=== PATIENT | male | born 1990 | race Caucasian/White ===

== ENCOUNTER 2023-12-21 12:59 | Outpatient (AMB) | payer OTHER, SELFPAY ==
[2023-12-21 13:12] VITALS: BP 124/84; PULSE 84; O2SAT 97; BMI 21.7
--- NOTE | 2023-12-21 13:12 | A.OFFPC_ITS ---
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 Pt hasn't seen a primary care since 20 years old. 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 Has not seen any medical doctor since he was 20 years old. Has been having frequent anxiety attacks and depressed mood on and off. Has not been seen and evaluated by psychiatry or seen a therapist. Heavy alcohol intake, drinks at least 2 six-packs on a daily basis, not ready to quit. Has history of cocaine use and marijuana in the past. Currently employed and has a has a to job with increased risk for asbestos exposure. He had a recent chest xray and pulmonary function test, required by his job. [facility] Medical History (Updated 12/21/23 @ 13:42 by Cesia Zavala MD) Depression with anxiety History of exposure to asbestos, presenting hazards to health Alcoholism Former cigarette smoker Alcohol use disorder Family History (Updated 12/21/23 @ 13:23 by Cesia Zavala MD) Mother Substance abuse Mental health disorder Father Substance abuse Mental health disorder Maternal Grandfather Prostate cancer Social History (Updated 12/24/23 @ 14:03 by Cesia Zavala MD) Housing: House Alcohol intake: current Alcohol intake frequency: 3 or more drinks per day Alcohol type: beer Comment: 2 6 pack a day Patient Tobacco Use Status: Former Tobacco user Tobacco use type: Cigarette e-Cigarette/Vaping Use: Never Used Substance Use Type: Crack/Cocaine and Marijuana service: No Current occupational status: employed Current occupational exposures/hazards: Yes Cognitive needs: No Hearing needs: No Vision needs: No Questionnaire PHQ-9 Over the last 2 weeks, how often have you been bothered by any of the following problems? 1. Little interest or pleasure in doing things: more than half the days 2. Feeling down, depressed, or hopeless: more than half the days 3. Trouble falling or staying asleep, or sleeping too much: nearly every day 4. Feeling tired or having little energy: more than half the days 5. Poor appetite or overeating: several days 6. Feeling bad about yourself - or that you are a failure or have let yourself or your family down: more than half the days 7. Trouble concentrating on things, such as reading the newspaper or watching television: more than half the days 8. Moving or speaking so slowly that other people could have noticed. Or the opposite - being so fidgety or restless that you have been moving around a lot more than usual: not at all 9. Thoughts that you would be better off or of hurting yourself in some way: not at all Total score: 14 Depression Screening Interpretation: Positive (Declines to start treatment, will refer for counseling) Depression Screening Follow-up: Community Mental Health Worker F/U Depression Screening Done: Yes 60672 - PHQ-9 Billing: Yes Source: Developed by Drs. Jim Baxter, Day Mcmullen, Julio C Savage and colleagues, with an educational aby from [employer]. Thrive Questionnaire Date Thrive assessed: 12/21/23 I am a: Patient What is your living situation today?: I have a steady place to live Within the past 12 months, did the food you bought not last and you didn't have the money to get more?: I choose not to answer this question Within the past 12 months, did you worry whether your food would run out before you got money to buy more?: I choose not to answer this question Do you have trouble paying for medicines?: No Do you have trouble getting transportation to medical appointments?: No Do you have trouble paying your heating and electricity bill?: No Do you have trouble taking care of your child, family member or friend?: No Do you have trouble with day-to-day activities such as bathing, preparing meals, shopping, managing finances, etc.?: No Are you currently unemployed and looking for a job?: No Are you interested in more education?: No Please select the resources that you would like help with: None Currently or been in a relationship where the following occur: I choose not to answer THRIVE Score: 0 AUDIT C Alcohol Use Questionnaire (AUDIT-C) 1. How often do you have a drink containing alcohol?: 4 or more times a week 2. How many drinks containing alcohol do you have on a typical day when you are drinking?: 10 or more 3. How often do you have six or more drinks on one occasion?: Daily or almost daily Total Score: 12 Score Reviewed/Action Taken: Yes KALPESH-7 AMB Questionnaire KALPESH-7 Date KALPESH - 7 assessed: 12/21/23 Feeling nervous, anxious, or on edge: 1 = Several days Not being able to stop or control worryin = Several days Worrying too much about different things: 1 = Several days Trouble relaxin = Several days Being so restless that it is hard to sit still: 1 = Several days Becoming easily annoyed or irritable: 1 = Several days Feeling afraid as if something awful might happen: 1 = Several days Total KALPESH-7 score (0-4 normal; 5-9 mild; 10-14 moderate; 15-21 severe): 7 Source: Developed by Drs. Jim Baxter, Day Mcmullen, Julio C Savage and colleagues, with an educational aby from [employer]. KALPESH-7 Assessment Billing KALPESH-7 Assessment Tool: KALPESH-7 Assessment 86598 Review of Systems Const Denies body aches, Denies fatigue, Denies fever(s), Denies headache(s) and Denies weakness Eyes Denies change in vision ENT Denies dizziness, Denies headache(s), Denies nasal discharge and Denies sore throat Card Denies chest pain, Denies lightheadedness, Denies palpitations and Denies dyspnea Resp Denies chest congestion, Denies cough, Denies dyspnea and Denies wheezing GI Denies abdominal pain, Denies change in bowel habits and Denies heartburn Denies hematuria, Denies difficulty urinating, Denies dysuria, Denies urinary frequency and Denies urinary urgency Musc Reports no additional complaints Skin/Breast Denies lesions and Denies rash Neuro Denies dizziness, Denies headache(s) and Denies weakness Psych Reports as per HPI Endo Denies fatigue, Denies polydipsia, Denies polyuria and Denies palpitations Killian/Lymph Denies easy bruising Aller/Immun Denies seasonal rhinorrhea and Denies wheezing Physical exam (Primary Care) Vital Signs: Last Vital Signs Pulse 84 12/21/23 13:12 BP 124/84 12/21/23 13:12 Pulse Ox 97 12/21/23 13:12 Oxygen Delivery Method Room Air 12/21/23 13:12 BMI result Body Mass Index 21.7 Tobacco/Smoking Status: Tobacco use Status Tobacco use date assessed 12/21/23 12/21/23 13:16 Patient Tobacco Use Status Former Tobacco user 12/21/23 13:27 Tobacco use type Cigarette 12/21/23 13:27 e-Cigarette/Vaping Use Never Used 12/21/23 13:27 PHQ-9: PHQ-9 Score PHQ-9: Total score 16 12/21/23 13:46 Depression Screening Interpretation: Positive (Declines to start treatment, will refer for counseling) Depression Screening Follow-up: Community Mental Health Worker F/U Thrive Assessment: Date of Thrive Assessment Date Thrive assessed 12/21/23 12/21/23 13:16 Currently or been in a relationship where the following occur: I choose not to answer Const General: no acute distress and alert Orientation/consciousness: patient oriented x3 HENMT Head: Yes normocephalic and Yes atraumatic Ears: external ears normal, TM's normal bilaterally and EAC's normal General nose exam: Normal external nose present and No nasal discharge present Face and sinus: Yes face symmetric Mouth: Normal oral and palatal mucosa present, tongue normal, oropharynx normal and moist mucous membranes Eyes General: appearance normal, both eyes and all related structures Eyelids: Yes eyelids normal Conjunctivae: conjunctivae normal Sclerae: sclerae normal Pupils: Equal, round and reactive pupils present EOM: EOMs intact bilaterally Neck Neck: Yes full ROM, Yes no lymphadenopathy and Yes supple Thyroid: Thyroid normal Chest Chest palpation & inspection: normal inspection of the chest Resp Effort & Inspection: normal respiratory effort and able to speak in complete sentences Auscultation: clear to auscultation bilaterally Cardio Rate: regular rate Rhythm: regular rhythm Heart sounds: S1 normal heart sound present and S2 normal heart sound present GI Palpation (GI): Soft to palpation, nontender, no guarding and no masses Auscultation: normal bowel sounds General: Yes no CVA tenderness Scrotum: no inguinal hernias Back/Spine/Pelvis Back: no CVA tenderness and No back tenderness Skin General skin exam: no rashes or lesions noted Neuro General: patient oriented x3, gait normal, moves all extremities, Normal light touch and pain sensation, no focal motor deficits and CN's II-XI intact bilaterally Cranial nerves: Yes Equal, round and reactive pupils present Cognition (Neuro): normal cognition Gait exam (Neuro): Normal gait present Motor exam (neuro): 5/5 motor strength present throughout Extrem General: Yes normal to inspection, Yes full ROM, Yes no joint enlargement, Yes no pedal edema and Yes normal gait Psych Appearance: grossly normal and well kempt Mental Status: mental status grossly normal Speech and movement: Normal speech and movement present Affect: normal affect Attitude: cooperative Thought process: Normal thought process present Thought content: Normal thought content present Assessment and Plan Assessment & Plan (1) Annual visit for general adult medical examination with abnormal findings: Code(s): Z00.01 - Encounter for general adult medical examination with abnormal findings Plan: Will check appropriate labs. Recommended dental visit every 6 months and regular eye exams, at least every 2 years. Take adequate calcium in diet and vitamin-D 3 at 2000 IU per cap once a day, in addition to weight-bearing exercises to help maintain good muscle tone and weight control. Instructed to do self testicular exam check for any mass, reminded to get his yearly flu shot , up-to-date with Tdap, declined COVID vaccine (2) Alcohol use disorder: Code(s): F10.90 - Alcohol use, unspecified, uncomplicated Plan: Offered referral for counseling, but patient not interested in quitting at present time. Patient states that he has been attending AA at times. Labs ordered to check for comprehensive metabolic panel CBC, vitamin-D level, TSH, vitamin B12 and folic acid and magnesium level. Discuss other treatment options to treat alcoholism which includes Campral, patient states that he has heard of it, but is not ready to do so at present time (3) Former cigarette smoker: Code(s): Z87.891 - Personal history of nicotine dependence (4) History of exposure to asbestos, presenting hazards to health: Code(s): Z77.090 - Contact with and (suspected) exposure to asbestos Plan: Patient just recently had a work physical, requested copy of chest x-ray and pulmonary function test results (5) Depression with anxiety: Code(s): F41.8 - Other specified anxiety disorders Plan: Referred to our mental health coordinator for assistance with getting in to see a therapist. Not interested in taking any medication at present time. Orders: Orders Comprehensive [place]. Panel Fast 12/22/23 F10.20 - Alcohol dependence, uncomplicated, F41.8 - Other specified anxiety disorders, Z00.01 - Encounter for general adult medical examination with abnormal findings, Z77.090 - Contact with and (suspected) exposure to asbestos, Z87.891 - Personal history of nicotine dependence Complete Blood Count Auto Diff 12/22/23 F10.20 - Alcohol dependence, uncomplicated, F10.90 - Alcohol use, unspecified, uncomplicated, F41.8 - Other specified anxiety disorders, Z00.01 - Encounter for general adult medical examination with abnormal findings, Z77.090 - Contact with and (suspected) exposure to asbestos, Z87.891 - Personal history of nicotine dependence Vitamin D 25-OH Total 12/22/23 F10.20 - Alcohol dependence, uncomplicated, F10.90 - Alcohol use, unspecified, uncomplicated, F41.8 - Other specified anxiety disorders, Z00.01 - Encounter for general adult medical examination with abnormal findings, Z77.090 - Contact with and (suspected) exposure to asbestos, Z87.891 - Personal history of nicotine dependence TSH reflex Free T4 12/22/23 F10.20 - Alcohol dependence, uncomplicated, F10.90 - Alcohol use, unspecified, uncomplicated, F41.8 - Other specified anxiety disorders, Z00.01 - Encounter for general adult medical examination with abnormal findings, Z77.090 - Contact with and (suspected) exposure to asbestos, Z87.891 - Personal history of nicotine dependence HIV Ab/Ag 12/22/23 F10.20 - Alcohol dependence, uncomplicated, F10.90 - Alcohol use, unspecified, uncomplicated, F41.8 - Other specified anxiety disorders, Z00.01 - Encounter for general adult medical examination with abnormal findings, Z11.3 - Encounter for screening for infections with a predominantly sexual mode of transmission, Z77.090 - Contact with and (suspected) exposure to asbestos, Z87.891 - Personal history of nicotine dependence Hepatitis B,C Profile 12/22/23 F10.20 - Alcohol dependence, uncomplicated, F10.90 - Alcohol use, unspecified, uncomplicated, F41.8 - Other specified anxiety disorders, Z00.01 - Encounter for general adult medical examination with abnormal findings, Z11.3 - Encounter for screening for infections with a predominantly sexual mode of transmission, Z77.090 - Contact with and (suspected) exposure to asbestos, Z87.891 - Personal history of nicotine dependence Lipid Panel 12/22/23 F10.20 - Alcohol dependence, uncomplicated, F10.90 - Alcohol use, unspecified, uncomplicated, F41.8 - Other specified anxiety disorders, Z00.01 - Encounter for general adult medical examination with abnormal findings, Z77.090 - Contact with and (suspected) exposure to asbestos, Z87.891 - Personal history of nicotine dependence Vitamin B12 and Folate 12/22/23 F10.20 - Alcohol dependence, uncomplicated, F10.90 - Alcohol use, unspecified, uncomplicated, F41.8 - Other specified anxiety disorders, Z00.01 - Encounter for general adult medical examination with abnormal findings, Z77.090 - Contact with and (suspected) exposure to asbestos, Z87.891 - Personal history of nicotine dependence Magnesium 12/22/23 F10.20 - Alcohol dependence, uncomplicated, F10.90 - Alcohol use, unspecified, uncomplicated, F41.8 - Other specified anxiety disorders, Z00.01 - Encounter for general adult medical examination with abnormal findings, Z77.090 - Contact with and (suspected) exposure to asbestos, Z87.891 - Personal history of nicotine dependence CT NG by PCR 12/22/23 F10.20 - Alcohol dependence, uncomplicated, F41.8 - Other specified anxiety disorders, Z00.01 - Encounter for general adult medical examination with abnormal findings, Z11.3 - Encounter for screening for infecti ons with a predominantly sexual mode of transmission Coding Level of Care Code New Pt Prev Care 18-39yr([id number] Diagnoses Annual visit for general adult medical examination with abnormal findings Z00.01 Alcohol use disorder F10.90 Former cigarette smoker Z87.891 History of exposure to asbestos, presenting hazards to health Z77.090 Depression with anxiety F41.8 Additional Codes KALPESH-7 Assessment Billing - KALPESH-7 Assessment Tool: KALPESH-7 Assessment 33605 ([id number])
== END 2023-12-21 14:08 | disposition home or self-care (01) ==
PROVIDERS: Visit Provider Internal Medicine
DX: Z00.00 Encounter for general adult medical examination without abnormal findings (principal); F10.90 Alcohol use, unspecified, uncomplicated; Z87.891 Personal history of nicotine dependence; F41.8 Other specified anxiety disorders; Z77.090 Contact with and (suspected) exposure to asbestos
CPT/HCPCS: 96127; 99385

== ENCOUNTER 2023-12-22 08:59 | Outpatient (REF) | payer OTHER, SELFPAY ==
[2023-12-22 10:30] LABS: MANUAL DIFF FLAG NO
[2023-12-22 10:33] LABS: Basophils Absolute Auto 0.1 X10*3/uL (0.0-0.2); Basophils Percent Auto 1.1 % (0-2); Eosinophils Absolute Auto 0.1 X10*3/uL (0.0-0.4); Hematocrit 42.4 % (42.0-52.0); Hemoglobin 14.4 g/dl (14.0-18.0); Imm Gran Abs Auto 0.02 X10*3/uL (0.00-0.03); Imm Gran Pct Auto 0.4 % (0.0-0.4); Lymphocytes Percent Auto 21.2 % (20-40); Mean Corpuscular Hemoglobin 32.4 pg (27.0-33.0); Mean Corpuscular Volume 95.3 fL (80.0-98.0); Mean Platelet Volume 10.3 fL (9.4-12.4); Monocytes Absolute Auto 0.6 X10*3/uL (0.1-1.2); Monocytes Percent Auto 13.6 % (2-11); Neutrophils Absolute Auto 2.9 x10*3/uL (2.0-8.3); Neutrophils Percent Auto 60.7 % (45-73); Platelet Count 338 X10*3/uL (160-400); Red Blood Count 4.45 X10*6/uL (4.60-5.80); Red Cell Distribution Width 13.8 % (11.0-16.0); White Blood Count 4.7 X10*3/uL (4.8-10.8)
[2023-12-22 11:02] LABS: Alanine Aminotransferase 124 U/L (0-40); Albumin Level 4.5 g/dL (3.5-5.0); Alkaline Phosphatase 76 U/L (39-117); Anion Gap 14 (12-20); Aspartate Amino Transferase 103 U/L (5-37); Bilirubin Total 0.8 mg/dL (0.0-1.0); Blood Urea Nitrogen 7 mg/dL (9-16); Calcium 9.8 mg/dL (8.4-10.2); Carbon Dioxide 26 mmol/L (22-29); Chloride 104 mmol/L (96-108); Cholesterol 230 mg/dL (<200); Estimated Glomerular Filt Rate > 60; Glucose Fasting 82 mg/dL (60-99); HDL Cholesterol 105 mg/dL (>40); LDL Cholesterol Calculated 108 mg/dL (<100); Magnesium 2.2 mg/dL (1.6-2.6); Potassium 3.8 mmol/L (3.3-5.1); Sodium 140 mmol/L (135-145); Total Protein 7.7 g/dL (6.5-8.0); Triglycerides 89 mg/dL (<150)
[2023-12-22 11:23] LABS: TSH reflex Free T4 0.36 uIU/mL (0.32-4.0); Vitamin D 25-OH Total 22.5 ng/mL (>30)
[2023-12-22 11:25] LABS: HBS Num1 0.45 mIU/mL (0-7.99); HBsAGNum1 0.24 S/CO (0.00-0.99); HIV AB/AG Nonreactive (Nonreactive); HIV Num 1 0.05 S/CO (0.00-0.99); Hepatitis B Core Antibody Nonreactive (Nonreactive); Hepatitis B Surface Antigen Negative (Negative); ~Hepatitis B Surface Antibody NONREACTIVE (Nonreactive); ~Hepatitis C Antibody Nonreactive (Nonreactive)
[2023-12-22 11:34] LABS: Folate 6.1 ng/mL (> or = 4.0); Vitamin B12 646 pg/mL (200-900)
[2023-12-22 12:40] LABS: CT PCR NOT DETECTED (Not Detect.); NG PCR NOT DETECTED (Not Detect.)
== END 2023-12-22 09:00 | disposition home or self-care (01) ==
LOC: HO.HMGCLDS 08:59
PROVIDERS: PCP Internal Medicine; Visit Provider Internal Medicine
DX: Z00.01 Encounter for general adult medical examination with abnormal findings (principal); Z87.891 Personal history of nicotine dependence; F10.20 Alcohol dependence, uncomplicated; Z77.090 Contact with and (suspected) exposure to asbestos; F41.8 Other specified anxiety disorders; Z11.3 Encounter for screening for infections with a predominantly sexual mode of transmission
CPT/HCPCS: 80053; 80061; 82306; 82607; 82746; 83735; 84443; 85025; 86704; 86706; 86803; 87340; 87389; 87491; 87591

== ENCOUNTER 2024-08-22 10:43 | Outpatient (AMB) | payer OTHER, SELFPAY ==
--- NOTE | 2024-08-22 11:16 | MHC.OFFWIV ---
Intake Vital Signs 08/22/24 11:26 Weight 144 lb 6 oz BP 110/64 Blood Pressure Location Rt brachial Position Sitting Pulse 86 Pulse Source Pulse Oximeter Temp 98.2 F Temp Source Oral Pulse Oximetry (%) 98 Oxygen Delivery Method Room Air Intake Visit Reasons: EP-bottom teeth infection Intake Note: Patient here for tooth infection that has been present for about 1 month. Patient Tobacco Use Status: Former Tobacco user Allergies No Known Allergies Allergy (Verified 08/22/24 11:26) Do you need a note to return to daycare/school/sports/work: No HPI HPI Comments History of Present Illness Details History of Present Illness - The patient is a 34-year-old male presenting with a dental infection. - Presenting with an infection in the lower left oral teeth x a week and now starting in the right lower teeth - Symptoms have recurred intermittently over approximately 12 years. - Dental complications originated from wisdom teeth, causing structural damage. - Previous episodic use of amoxicillin has provided symptomatic relief. - Current symptoms include the absence of fevers or heart racing or chills. - Patient has just established care with a dental professional as he did obtain health insurance 2 days ago. Physical Exam General: Cooperative, healthy appearing, comfortable, no acute distress and well developed Orientation: Patient oriented x3 Limitations: No limitations Head: Normal to inspection Ears: Hearing grossly normal bilaterally Nose: Normal External nose present Face and sinus: Normal facial exam Eyes: Appearance normal, both eyes and all related structures Neck: Normal visual inspection and Yes full ROM Respiratory: Normal respiratory effort and able to speak in complete sentences. Skin: No rashes or lesions noted Neuro: Patient oriented x3 Extremities: Normal to inspection [facility] Medical History (Updated 08/22/24 @ 11:47 by Ruthie Mcclelland PA-C) Vitamin D deficiency Elevated liver transaminase level Depression with anxiety History of exposure to asbestos, presenting hazards to health Alcoholism Former cigarette smoker Alcohol use disorder Family History (Updated 12/21/23 @ 13:23 by Cesia Zavala MD) Mother Substance abuse Mental health disorder Father Substance abuse Mental health disorder Maternal Grandfather Prostate cancer Social History (Updated 12/24/23 @ 14:03 by Cesia Zavala MD) Housing: House Alcohol intake: current Alcohol intake frequency: 3 or more drinks per day Alcohol type: beer Comment: 2 6 pack a day Patient Tobacco Use Status: Former Tobacco user Tobacco use type: Cigarette e-Cigarette/Vaping Use: Never Used Substance Use Type: Crack/Cocaine and Marijuana service: No Current occupational status: employed Current occupational exposures/hazards: Yes Cognitive needs: No Hearing needs: No Vision needs: No Review of Systems Const All systems reviewed & are unremarkable except as noted in HPI and below Physical Exam Vital Signs: Last Vital Signs Temp 98.2 F 08/22/24 11:26 Pulse 86 08/22/24 11:26 BP 110/64 08/22/24 11:26 Pulse Ox 98 08/22/24 11:26 Oxygen Delivery Method Room Air 08/22/24 11:26 HEENT Teeth image: 1. mult dental caries with palpable small, firm nodule in the soft tissue left lower cheek 2. mult dental caries Assessment & Plan Assessment & Plan (1) Infected dental caries: Code(s): K02.9 - Dental caries, unspecified; K04.7 - Periapical abscess without sinus Plan: VSS, pt well appearing and PE remarkable for infected dental carries with a small abscess. The patient with a dental infection likely with a small abscess has been prescribed Augmentin for 10 days as it is effective for oral infections. Due to the nature of the issue, which began with wisdom teeth complications, I advised continuing care with a dentist for potential extraction and long-term resolution. I stressed avoiding prolonged antibiotic use without professional dental intervention and advised the patient to monitor for systemic symptoms indicating a need for urgent care. The patient agreed to the proposed plan and understood the importance of comprehensive dental evaluation and treatment. If he develops any fevers, worsening pain or heart racing, he was instructed to go to the ED. Patient was informed and verbally consented to the use of an ambient scribe for clinic note documentation during this visit. Medications: New amoxicillin-pot clavulanate 875-125 mg 1 tab PO Q12H 20 tabs 0RF Coding Level of Care Code Est Pt Level 3 (78893) Diagnoses Infected dental caries K02.9; K04.7
[2024-08-22 11:26] VITALS: BP 110/64; PULSE 86; TEMP 36.8; O2SAT 98
== END 2024-08-22 12:06 | disposition home or self-care (01) ==
PROVIDERS: PCP Internal Medicine; Visit Provider Physician Assistant
DX: K02.9 Dental caries, unspecified (principal); K04.7 Periapical abscess without sinus

== ENCOUNTER → 2024-08-22 10:43 | Outpatient (BNVA) | payer OTHER, SELFPAY | PROVIDERS: PCP Internal Medicine; Visit Provider Physician Assistant | DX: K02.9 Dental caries, unspecified (principal); K04.7 Periapical abscess without sinus | CPT/HCPCS: 99212 ==

== ENCOUNTER 2025-02-10 14:26 | Outpatient (AMB) | payer OTHER, SELFPAY ==
--- NOTE | 2025-02-10 14:58 | MHC.PC.OV ---
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 He recently had blood work done through his employer for occupational lead exposure, which included a CBC with differential, urinalysis, lead, and zinc levels, but did not include a comprehensive metabolic panel or cholesterol. The patient reports a long-standing history of chronic lower back and neck pain since childhood, which he has not previously addressed. He currently experiences numbness in his right arm, especially when sitting in certain positions. He complains of symptoms consistent with a deviated septum, describing one nostril as always feeling like it's on fire burning, and also reports a runny nose , for which he previously used Claritin. Regarding his dental health, he recently had nine teeth pulled at [place] [facility] and is supposed to get partials . The patient has quit smoking cigarettes but continues to vape nicotine. He is now sober from alcohol and reports that a friend gave him Naltrexone, which he found effective in reducing cravings. He has a history of asbestos exposure , and had a chest x-ray that was normal. His vaccination history includes a Tdap in 2018 and flu shots in 2015 and 2018; he declined all vaccines during this visit. [facility] Medical History (Updated 02/16/25 @ 04:14 by Cesia Zavala MD) Rhinitis, allergic History of alcohol use disorder History of alcoholism Vitamin D deficiency Elevated liver transaminase level Depression with anxiety History of exposure to asbestos, presenting hazards to health Alcoholism Former cigarette smoker Alcohol use disorder Family History Mother Substance abuse Mental health disorder Father Substance abuse Mental health disorder Maternal Grandfather Prostate cancer Social History (Updated 02/16/25 @ 04:04 by Cesia Zavala MD) Housing: House Alcohol intake: former Patient Tobacco Use Status: Former Tobacco user Tobacco use type: Cigarette e-Cigarette/Vaping Use: Currently Using Substance Use Type: Former Substance User service: No Current occupational status: employed Current occupational exposures/hazards: Yes Cognitive needs: No Hearing needs: No Vision needs: No Questionnaire PHQ-9 Over the last 2 weeks, how often have you been bothered by any of the following problems? 1. Little interest or pleasure in doing things: not at all 2. Feeling down, depressed, or hopeless: not at all 3. Trouble falling or staying asleep, or sleeping too much: not at all 4. Feeling tired or having little energy: not at all 5. Poor appetite or overeating: not at all 6. Feeling bad about yourself - or that you are a failure or have let yourself or your family down: not at all 7. Trouble concentrating on things, such as reading the newspaper or watching television: not at all 8. Moving or speaking so slowly that other people could have noticed. Or the opposite - being so fidgety or restless that you have been moving around a lot more than usual: not at all 9. Thoughts that you would be better off or of hurting yourself in some way: not at all Total score: 0 Depression Screening Interpretation: Negative Depression Screening Done: Yes 77756 - PHQ-9 Billing: Yes Source: Developed by Drs. Jim Baxter, Day Mcmullen, Julio C Savage and colleagues, with an educational aby from [employer]. Thrive Questionnaire Date Thrive assessed: 12/18/24 I am a: Patient What is your living situation today?: I have a steady place to live Within the past 12 months, did the food you bought not last and you didn't have the money to get more?: Never true Within the past 12 months, did you worry whether your food would run out before you got money to buy more?: Never true Do you have trouble paying for medicines?: No Do you have trouble getting transportation to medical appointments?: No Do you have trouble paying your heating and electricity bill?: No Do you have trouble taking care of your child, family member or friend?: No Do you have trouble with day-to-day activities such as bathing, preparing meals, shopping, managing finances, etc.?: No Are you currently unemployed and looking for a job?: No Are you interested in more education?: No Please select the resources that you would like help with: None Currently or been in a relationship where the following occur: I choose not to answer THRIVE Score: 0 AUDIT C Alcohol Use Questionnaire (AUDIT-C) 1. How often do you have a drink containing alcohol?: Never (former) Total Score: 0 KALPESH-7 AMB Questionnaire KALPESH-7 Date KALPESH - 7 assessed: 02/10/25 Feeling nervous, anxious, or on edge: 0 = Not at all Not being able to stop or control worryin = Not at all Worrying too much about different things: 0 = Not at all Trouble relaxin = Not at all Being so restless that it is hard to sit still: 0 = Not at all Becoming easily annoyed or irritable: 0 = Not at all Feeling afraid as if something awful might happen: 0 = Not at all Total KALPESH-7 score (0-4 normal; 5-9 mild; 10-14 moderate; 15-21 severe): 0 Source: Developed by Drs. Jim Baxter, Day Mcmullen, Julio C Savage and colleagues, with an educational aby from [employer]. KALPESH-7 Assessment Billing KALPESH-7 Assessment Tool: KALPESH-7 Assessment 91989 Review of Systems Const Denies fatigue, Denies fever(s), Denies headache(s) and Denies weakness Eyes Denies change in vision ENT Reports as per HPI, Denies dizziness and Denies headache(s) Card Denies chest pain, Denies lightheadedness, Denies palpitations and Denies dyspnea Resp Denies chest congestion, Denies cough, Denies dyspnea and Denies wheezing GI Denies abdominal pain, Denies change in bowel habits and Denies heartburn Denies hematuria, Denies difficulty urinating, Denies dysuria, Denies urinary frequency and Denies urinary urgency Musc Reports as per HPI Skin/Breast Denies lesions and Denies rash Neuro Reports as per HPI, Denies dizziness, Denies headache(s) and Denies weakness Psych Reports no additional complaints Endo Denies fatigue, Denies polydipsia, Denies polyuria and Denies palpitations Killian/Lymph Denies easy bruising Aller/Immun Reports as per HPI and Denies wheezing Physical exam (Primary Care) Vital Signs: Last Vital Signs Temp 98.2 F 02/10/25 15:18 Pulse 89 02/10/25 15:18 Resp 16 02/10/25 15:18 BP 110/76 02/10/25 15:18 Pulse Ox 98 02/10/25 15:18 Oxygen Delivery Method Room Air 02/10/25 15:18 BMI result Body Mass Index 20.9 Tobacco/Smoking Status: Tobacco use Status Tobacco use date assessed 02/10/25 02/10/25 15:02 Patient Tobacco Use Status Former Tobacco user 02/10/25 15:02 Tobacco use type Cigarette 02/10/25 15:02 e-Cigarette/Vaping Use Never Used 02/10/25 15:02 Depression Screening Interpretation: Negative Thrive Assessment: Date of Thrive Assessment Date Thrive assessed 12/18/24 02/10/25 15:02 Currently or been in a relationship where the following occur: I choose not to answer Const General: no acute distress and alert Orientation/consciousness: patient oriented x3 HENMT Head: Yes normocephalic Ears: external ears normal, TM's normal bilaterally and EAC's normal General nose exam: Normal external nose present and No nasal discharge present Face and sinus: Yes face symmetric Mouth: Normal oral and palatal mucosa present and moist mucous membranes Eyes General: appearance normal, both eyes and all related structures Eyelids: Yes eyelids normal Conjunctivae: conjunctivae normal Sclerae: sclerae normal Pupils: Equal, round and reactive pupils present EOM: EOMs intact bilaterally Neck Neck: Yes full ROM, Yes no lymphadenopathy and Yes supple Chest Chest palpation & inspection: normal inspection of the chest Resp Effort & Inspection: normal respiratory effort and able to speak in complete sentences Auscultation: clear to auscultation bilaterally Cardio Rate: regular rate Rhythm: regular rhythm Heart sounds: S1 normal heart sound present and S2 normal heart sound present GI Palpation (GI): Soft to palpation, nontender, no guarding and no masses Auscultation: normal bowel sounds General: Yes no CVA tenderness Scrotum: no inguinal hernias Back/Spine/Pelvis Back: no CVA tenderness and No back tenderness Thoracic/Lumbar Spine: straight leg raise negative bilaterally, No pain with thoraco-lumbar ROM and No paraspinal muscle tenderness Skin General skin exam: no rashes or lesions noted Neuro General: patient oriented x3, gait normal, moves all extremities, Normal light touch and pain sensation, no focal motor deficits and CN's II-XI intact bilaterally Cranial nerves: Yes Equal, round and reactive pupils present Cognition (Neuro): normal cognition Gait exam (Neuro): Normal gait present Motor exam (neuro): 5/5 motor strength present throughout Extrem General: Yes normal to inspection, Yes full ROM, Yes no joint enlargement, Yes no pedal edema and Yes normal gait Psych Appearance: grossly normal and well kempt Mental Status: mental status grossly normal Speech and movement: Normal speech and movement present Affect: normal affect Coding Level of Care Code Est Pt Prev Care 18-39y(64417) Diagnoses Annual visit for general adult medical examination with abnormal findings Z00.01 Elevated liver transaminase level R74.01 Vitamin D deficiency E55.9 History of alcoholism F10.21 Neck Pain M54.2 Non-seasonal allergic rhinitis, unspecified trigger J30.89 Allergic rhinitis trigger: unspecified Allergic rhinitis seasonality: non-seasonal Vaping nicotine dependence, tobacco product F17.290 Additional Codes PHQ-9 - 78837 - PHQ-9 Billing: Yes ([id number]) KALPESH-7 Assessment Billing - KALPESH-7 Assessment Tool: KALPESH-7 Assessment 30111 ([id number]) Assessment & Plan Assessment & Plan (1) Annual visit for general adult medical examination with abnormal findings: Code(s): Z00.01 - Encounter for general adult medical examination with abnormal findings Plan: Will check appropriate labs. Continue regular dental visit every 6 months and regular eye exams, at least every 2 years. Take adequate calcium in diet and vitamin-D 3 at 2000 IU per cap once a day, in addition to weight-bearing exercises to help maintain good muscle tone and weight control. Instructed to do self testicular exam check for any mass. Declined recommended vaccines (2) Elevated liver transaminase level: Code(s): R74.01 - Elevation of levels of liver transaminase levels Category: Medical Plan: The patient had elevated liver enzymes and cholesterol on labs from last year. Recent occupational health lab results did not assess these markers. The plan is to obtain fasting blood work, including a comprehensive metabolic panel to check liver function, a lipid panel, and a vitamin D level (3) Vitamin D deficiency: Code(s): E55.9 - Vitamin D deficiency, unspecified Category: Medical Plan: Will check vitamin-D level (4) History of alcoholism: Code(s): F10.21 - Alcohol dependence, in remission Category: Medical Plan: Commended patient on his sobriety. The patient is currently sober and inquired about a prescription for Naltrexone after finding it helpful in currently cravings. Will check liver function 1st (5) Neck Pain: Code(s): M54.2 - Cervicalgia Plan: x-rays of the cervical and lumbar spine ordered. If the imaging is unremarkable, the patient will be referred to physical therapy. (6) Rhinitis, allergic: Code(s): J30.9 - Allergic rhinitis, unspecified Category: Medical Qualifiers: Allergic rhinitis trigger: unspecified Allergic rhinitis seasonality: non-seasonal Qualified Code(s): J30.89 - Other allergic rhinitis Plan: The patient complains of a burning sensation in one nostril and a chronic runny nose, suggestive of a deviated septum and underlying allergies. He will be referred to an Ear, Nose, and Throat (ENT) specialist for evaluation. (7) Vaping nicotine dependence, tobacco product: Code(s): F17.290 - Nicotine dependence, other tobacco product, uncomplicated Plan: he has stopped smoking but continues to vape. The patient was advised on the need to quit. Plan Patient was informed and verbally consented to the use of an ambient scribe for clinic note documentation during this visit. Orders: Orders Comprehensive [place]. Panel Fast 02/10/25 E55.9 - Vitamin D deficiency, unspecified, F10.21 - Alcohol dependence, in remission, R74.01 - Elevation of levels of liver transaminase levels, Z13.1 - Encounter for screening for diabetes mellitus, Z13.220 - Encounter for screening for lipoid disorders, Z77.090 - Contact with and (suspected) exposure to asbestos, Z87.891 - Personal history of nicotine dependence Lipid Panel 02/10/25 E55.9 - Vitamin D deficiency, unspecified, F10.21 - Alcohol dependence, in remission, R74.01 - Elevation of levels of liver transaminase levels, Z13.1 - Encounter for screening for diabetes mellitus, Z13.220 - Encounter for screening for lipoid disorders, Z77.090 - Contact with and (suspected) exposure to asbestos, Z87.891 - Personal history of nicotine dependence Vitamin D 25-OH Total 02/10/25 E55.9 - Vitamin D deficiency, unspecified, F10.21 - Alcohol dependence, in remission, R74.01 - Elevation of levels of liver transaminase levels, Z13.1 - Encounter for screening for diabetes mellitus, Z13.220 - Encounter for screening for lipoid disorders, Z77.090 - Contact with and (suspected) exposure to asbestos, Z87.891 - Personal history of nicotine dependence XR lumbar spine 4V min 02/10/25 M54.2 - Cervicalgia, M54.50 - Low back pain, unspecified XR cervical spine min 6V 02/10/25 M54.2 - Cervicalgia, M54.50 - Low back pain, unspecified Complete Blood Count Auto Diff 02/10/25 F10.90 - Alcohol use, unspecified, uncomplicated
[2025-02-10 15:18] VITALS: BP 110/76; PULSE 89; RESP 16; TEMP 36.8; O2SAT 98; BMI 20.9
== END 2025-02-10 15:50 | disposition home or self-care (01) ==
LOC: HO.HMCC 14:27
PROVIDERS: PCP Internal Medicine; Visit Provider Internal Medicine
DX: Z00.01 Encounter for general adult medical examination with abnormal findings (principal); R74.01 Elevation of levels of liver transaminase levels; E55.9 Vitamin D deficiency, unspecified; F10.21 Alcohol dependence, in remission; M54.2 Cervicalgia; J30.89 Other allergic rhinitis; F17.290 Nicotine dependence, other tobacco product, uncomplicated

== ENCOUNTER → 2025-02-10 14:26 | Outpatient (BNVA) | payer OTHER, SELFPAY | PROVIDERS: PCP Internal Medicine; Visit Provider Internal Medicine | DX: Z00.01 Encounter for general adult medical examination with abnormal findings (principal); E78.00 Pure hypercholesterolemia, unspecified; M54.50 Low back pain, unspecified; M54.2 Cervicalgia; J34.2 Deviated nasal septum; R74.01 Elevation of levels of liver transaminase levels; E55.9 Vitamin D deficiency, unspecified; J30.89 Other allergic rhinitis; F10.21 Alcohol dependence, in remission; F17.290 Nicotine dependence, other tobacco product, uncomplicated | CPT/HCPCS: 96127; 99395 ==